=== PATIENT | female | born 1990 | race African-American/Black ===

== ENCOUNTER → 2017-03-06 | Outpatient (CLI) | payer OTHER ==
[~2017-03-06] MED LIST: CEPH250S PO; DIPH0.5S2 IM; PREN29TA PO
== END ==
LOC: HPND 13:46
PROVIDERS: ATTEND Family Medicine
DX: O09.32 Supervision of pregnancy with insufficient antenatal care, second trimester (principal); Z36.3 Encounter for antenatal screening for malformations; Z34.90 Encounter for supervision of normal pregnancy, unspecified, unspecified trimester
CPT/HCPCS: 76805

== ENCOUNTER 2017-03-18 14:33 | Observation (INO) | payer OTHER ==
[2017-03-18] VITALS (9 sets, daily range): BP systolic 93–175; BP diastolic 50–92; PULSE 92–120; RESP 18; TEMP 98.6
[~2017-03-18] VITALS: Ht 172.7 cm; Wt 130.0 kg
[~2017-03-18 14:33] MED LIST changes: -DIPH0.5S2 IM
[2017-03-18] MEDS ORDERED: SODIUM CHLORIDE 0.9% FLUSH 10 ML FLUSH IV FLUSH PRN (15:15)
[2017-03-18] MEDS ORDERED: NIFEdipine 10 MG CAP PO PRN (15:15)
[2017-03-18] MEDS ORDERED: ONDANSETRON HCL 4 MG/2 ML VIAL IV PUSH PRN (15:15)
[2017-03-18] MEDS ORDERED: ACETAMINOPHEN 325 MG TAB PO PRN (15:15)
[2017-03-18] MEDS ORDERED: CALCIUM GLUCONATE 10% 1 GM/10 ML VIAL IV PUSH PRN (15:15)
[2017-03-18 16:49] LABS: HEMATOCRIT 34.3 % (35.0-46.0); HEMOGLOBIN 10.8 GM/DL (11.6-15.3); MEAN CELL VOLUME 65.6 FL (80.0-100.0); MEAN CORPUSCULAR HEMOGLOBIN 20.7 PG (27.0-34.0); MEAN CORPUSCULAR HGB CONC 31.5 % (32.0-36.0); MEAN PLATELET VOLUME 10.1 FL (7.0-11.0); PLATELET COUNT 186 TH/MM3 (150-450); RED BLOOD COUNT 5.22 MIL/MM3 (4.00-5.30); RED CELL DISTRIBUTION WIDTH 16.4 % (11.6-17.2); WHITE BLOOD COUNT 8.9 TH/MM3 (4.0-11.0)
[2017-03-18 17:06] LABS: ALBUMIN 2.7 GM/DL (3.4-5.0); AST (GOT) 10 U/L (15-37); BICARBONATE 20.8 MEQ/L (21.0-32.0); BLOOD UREA NITROGEN 6 MG/DL (7-18); CHLORIDE 107 MEQ/L (98-107); GLOMERULAR FILTRATION RATE 121 ML/MIN (>89); GLUCOSE,RANDOM 69 MG/DL (74-106); SODIUM (NA) 138 MEQ/L (136-145)
[2017-03-18 17:10] LABS: ALKALINE PHOSPHATASE 178 U/L (45-117); ALT (GPT) 20 U/L (10-53); TOTAL BILIRUBIN ADULT 0.2 MG/DL (0.2-1.0); TOTAL PROTEIN 7.7 GM/DL (6.4-8.2)
[2017-03-18] MEDS ORDERED: FAMOTIDINE 20 MG TAB PO PRN (18:00)
[2017-03-18] MEDS: LACTATED RINGER'S 1000 ML INJ 1,000 ML IV SCH (18:04)
[2017-03-18] MEDS ORDERED: SODIUM CHLORIDE 0.9% FLUSH 10 ML FLUSH IV FLUSH SCH (21:00)
[2017-03-18 21:07] LABS: BACTERIA, URINE RARE /hpf; BILIRUBIN, URINE NEG (NEG); BLOOD, URINE NEG (NEG); GLUCOSE,URINE NEG (NEG); KETONE, URINE NEG (NEG); MUCUS URINE FEW /lpf (OCC); NITRITE,URINE NEG (NEG); PH, URINE 7.5 (5.0-8.5); SQUAMOUS EPITHELIAL CELL URINE 9 /hpf (0-5); URINE COLOR YELLOW (YELLW/STRAW); URINE LEUKOCYTE ESTERASE NEG (NEG)
[2017-03-18] MEDS ORDERED: CALCIUM CARBONATE 500 MG CHEWABLE TAB PO PRN (21:45)
[2017-03-19] VITALS (13 sets, daily range): BP systolic 96–126; BP diastolic 38–64; PULSE 76–92; RESP 18–20; TEMP 97.9–98.4
[2017-03-19] MEDS: LACTATED RINGER'S 1000 ML INJ 1,000 ML IV SCH (04:08)
--- NOTE | 2017-03-19 07:04 | HHI.HP ---
History & Physical H&P From ~1600 03/18: HPI Chief Complaint abdominal pain Date Seen: Mar 18, 2017 Travel History International Travel<30 Days: No Contact w/Intl Traveler<30Days: No History of Present Illness HPI Ms. James is a 26 yo at 36 2/7 weeks (patient of Dr. Singleton) who presents at request of Dr. Singleton due to tachycardia (reported HR 180) and abdominal pain not suggestive of ligamentous pain while in clinic today. Patient reports that her abdominal pain has been present since Saturday, 03/16, and has been intermittent in nature. Pain is generally in her lower abdomen as well as on her R side and in her back. patient states that this pain varies in how long it lasts; it sometimes lasts minutes. Pain can occur every few minutes to every few hours. Patient has not noticed any abdominal pain or obvious loss of vaginal fluid. Patient does not report any fevers/chills or abnormal urination or bowel movements. Patient has had shortness of breath for ~1 mo; she sleeps sitting up at night. No chest pain or leg swelling. labs: Pending; nursing staff at [facility] clinic attempting to obtain. 02/2017 labs- Hemoglobin 10.3, antibody screen positive for anti-Miguel antibodies, zoster titer low Patient had elevated BP with prior gestation at delivery; no reported preeclampsia. Weeks Gestation: 36 Para: 1 : 2 History Past Medical History Narrative Medical HTN during last gestation Obstetric History Obstetric History 1st gestation was ~7 years ago; CS for failure to progress at post term dates -Some reported elevated BP with prior gestation; unspecified Past Surgical History Narrative Surgical CS x1 7 years prior Appendectomy ~7 years prior Family History Narrative Family History Maternal HTN Social History Alcohol Use: No Tobacco Use: No Substance Abuse: No Allergies-Medications (Allergen,Severity, Reaction): Coded Allergies: No Known Allergies (Unverified , 03/12/17) Home Meds Active Scripts Vit-Iron Carbonyl ( Plus Iron 29-1 mg) 29 Mg Iron-1 Mg Tab, 1 TAB PO DAILY for Nutritional Supplement, #30 TAB 0 Refills Prov:Richard Singleton MD, R3 03/12/17 Cephalexin Liq (Cephalexin Liq) 250 Mg/5 Ml Susp, 500 MG PO Q6H for Infection, # 280 ML 0 Refills Prov:Richard Singleton MD, R3 02/28/17 Review of Systems General / Constitutional: No: Fever, Weight Gain Eyes: No: Blurred Vision HENT: No: Headaches Cardiovascular: No: Chest Pain or Discomfort Respiratory: No: Short of Breath Gastrointestinal: Abdominal Pain, No: Nausea, Vomiting Genitourinary: No: Urgency, Dysuria Skin: No Rash Neurologic: No: Weakness, Dizziness Psychiatric: No: Anxiety, Depression Physical Exam Initial BP 172/80 HR 91 RR 18 Narrative GENERAL: Well-nourished, well-developed patient. SKIN: Warm and dry. HEAD: Normocephalic and atraumatic. EYES: No scleral icterus. No injection or drainage. ENT: No nasal drainage noted. Mucous membranes pink. Airway patent. NECK: Supple, trachea midline. No JVD. CARDIOVASCULAR: Regular rate and rhythm without murmurs RESPIRATORY: Breath sounds equal bilaterally. No accessory muscle use. ABDOMEN/GI: Abdomen soft, non-tender, bowel sounds present, no rebound, no guarding Gravid EXTREMITIES: No cyanosis or edema. NEUROLOGICAL: Awake and alert. Motor and sensory function grossly within normal limits. GENITOURINARY: External Genitalia: intact and normal in appearance Uterine Contractions: None on CTG Cervix: closed, high, posterior FHT's: Category:1-2 (reactive, generally reassuring, some accelerations to 170's) Baseline: 150 Reactive: Y Variability: Mod Decels: None Data Data Vital Signs Reviewed: Yes Orders Orders Place In Observation (03/18/17 ) Resp Pulse Oximetry (03/18/17 ) Activity Bed Rest (03/18/17 15:10) Intake + Output Q1H (03/18/17 15:10) Notify Parameters (03/18/17 15:10) Heart CONTINUOUS (03/18/17 15:10) ^ Check Deep Tendon Reflexes Q1H (03/18/17 15:10) Diet Npo (03/18/17 Dinner) Lactated Ringer's 1000 Ml Inj (Lr 1000 M (03/18/17 15:10) Sodium Chloride 0.9% Flush (Ns Flush) (03/18/17 15:15) Sodium Chloride 0.9% Flush (Ns Flush) (03/18/17 21:00) Nifedipine (Procardia) (03/18/17 15:15) Calcium Gluconate Inj (Calcium Gluconate (03/18/17 15:15) Acetaminophen (Tylenol) (03/18/17 15:15) Ondansetron Inj (Zofran Inj) (03/18/17 15:15) Cbc No Diff, Includes Plts (03/18/17 15:10) Comprehensive Metabolic Panel (03/18/17 15:10) Uric Acid (03/18/17 15:10) Urinalysis - C+S If Indicated (03/18/17 15:10) Total Protein 24hr Urine (03/18/17 15:10) Creatinine 24 Hr Urine (03/18/17 15:10) Protein Creat Ratio, Random Ur (03/18/17 15:10) Vital Signs (Adult) .ON ADMISSION (03/18/17 15:12) ^ Labor Status (03/18/17 15:12) ^ Non Stress Test (03/18/17 15:12) Us Ob Bpp Wo Nst W Umb Art Dop (03/18/17 15:12) MDM Medical Record Reviewed: Yes Narrative Course / MDM 26 yo at 36 2/7 weeks (patient of Dr. Singleton) with abdominal pain -VS on admission- BP 172/80; subsequently decreased to 128/70 -Cat 1-2 rhythm (reassuring, baseline 150 with some accels to 170's, reactive) -Cervix closed -No contractions on EFM Plan: -Will admit for 23 hr observation -Continue to monitor VS, EFM -Will check CBC, CMP, UA, 24 hr urine protein/Creatinine, uric acid -Will check US to assess status -BPP 10/16 -Will follow HTN in protocol regarding antihypertensive administration if needed Bart Reid MD, R3 Mar 19, 2017 07:03
--- NOTE | 2017-03-19 10:25 | HHI.DCPOC ---
Discharge Care Plan Diagnosis: (1) 36 weeks gestation of (2) Elevated blood pressure reading (3) Abdominal pain Report Symptoms to Your Doctor -Temperature above 100.5 degrees -Redness, of incision or excessive or foul smelling drainage -Unusual pain or calf pain -Increased vaginal bleeding -Painful or difficulty urinating -Feelings of extreme sadness or anxiety after 2 weeks Goals to Promote Your Health * To prevent worsening of your condition and complications * To maintain your health at the optimal level Directions to Meet Your Goals Take your medications as prescribed Follow your dietary instruction Follow activity as directed Ensure plenty of rest for recovery Drink fluids for hydration Keep your appointments as scheduled Take your immunizations and boosters as scheduled If your symptoms worsen call your PCP, if no PCP go to Urgent Care Center or Emergency Room Smoking is Dangerous to Your Health. Avoid second hand smoke Call the 24-hour crisis hotline for domestic abuse at Rachael Hudson MD R1 Mar 19, 2017 10:25
--- NOTE | 2017-03-19 11:16 | PD.OB.ANTE ---
Subjective Diagnosis: (1) Diagnosis: Principal (2) Abdominal pain Diagnosis: Principal (3) Elevated blood pressure reading Diagnosis: Principal (4) 36 weeks gestation of Diagnosis: Principal Interval History Ms. James was afebrile with stable VS overnight (maximum BP 119/57). No concerns for distress or contractions on intermittent monitoring overnight. Patient reports that she has been feeling better this morning. Patient does not report significant abdominal pain. Patient has normal appetite. No vaginal bleeding or loss of vaginal fluid. Patient reports normal urination. Patient feels safe for discharge home; she plans to follow-up with Dr. Singleton (03/21/2016). (Bart Reid MD, R3) Remarks On repeat interview with Dr. Mckeon and Dr. Hudson, patient reported increased shortness of breath for the past 2-3 weeks with laying flat; this is alleviated with sitting up at night. Patient also thinks that walking helps her shortness of breath. Patient also reports some anxiety regarding her infant's safety but feels that she has stable support at home with her sisters. (Bart Reid MD, R3) Objective Vital Signs Vital Signs Date Time Temp Pulse Resp B/P (MAP) Pulse Ox O2 Delivery O2 Flow Rate FiO2 03/19/17 08:45 97.9 20 03/19/17 08:01 88 120/64 (82) 03/19/17 07:01 87 122/62 (82) 03/19/17 06:01 86 112/60 (77) 03/19/17 05:01 76 96/38 (57) 03/19/17 04:04 89 119/57 (77) 03/19/17 04:00 98.1 18 03/19/17 03:01 86 125/63 (83) 03/19/17 02:01 88 107/43 (64) 03/19/17 01:08 85 122/53 (76) 03/19/17 00:28 98.4 03/19/17 00:26 18 03/19/17 00:00 92 125/62 (83) 03/18/17 23:01 98 122/62 (82) 03/18/17 22:02 92 111/86 (94) 03/18/17 21:00 92 123/65 (84) 03/18/17 20:39 98.6 03/18/17 20:38 94 18 122/60 (80) 03/18/17 17:52 18 03/18/17 17:39 97 93/50 (64) 03/18/17 15:16 101 128/70 (89) 03/18/17 15:02 120 175/92 (119) Lab & Micro Results Test 03/18/17 15:08 03/18/17 18:22 White Blood Count 8.9 TH/MM3 Red Blood Count 5.22 MIL/MM3 Hemoglobin 10.8 GM/DL Hematocrit 34.3 % Mean Corpuscular Volume 65.6 FL Mean Corpuscular Hemoglobin 20.7 PG Mean Corpuscular Hemoglobin Concent 31.5 % Red Cell Distribution Width 16.4 % Platelet Count 186 TH/MM3 Mean Platelet Volume 10.1 FL Blood Urea Nitrogen 6 MG/DL Creatinine 0.70 MG/DL Random Glucose 69 MG/DL Total Protein 7.7 GM/DL Albumin 2.7 GM/DL Calcium Level 9.0 MG/DL Uric Acid 3.9 MG/DL Alkaline Phosphatase 178 U/L Aspartate Amino Transf (AST/SGOT) 10 U/L Alanine Aminotransferase (ALT/SGPT) 20 U/L Total Bilirubin 0.2 MG/DL Sodium Level 138 MEQ/L Potassium Level 4.1 MEQ/L Chloride Level 107 MEQ/L Carbon Dioxide Level 20.8 MEQ/L Anion Gap 10 MEQ/L Estimat Glomerular Filtration Rate 121 ML/MIN Urine Color YELLOW Urine Turbidity HAZY Urine pH 7.5 Urine Specific [place] 1.013 Urine Protein NEG mg/dL Urine Glucose (UA) NEG mg/dL Urine Ketones NEG mg/dL Urine Occult Blood NEG Urine Nitrite NEG Urine Bilirubin NEG Urine Urobilinogen LESS THAN 2.0 MG/DL Urine Leukocyte Esterase NEG Urine RBC 1 /hpf Urine WBC 3 /hpf Urine Squamous Epithelial Cells 9 /hpf Urine Bacteria RARE /hpf Urine Mucus FEW /lpf Microscopic Urinalysis Comment CULT NOT INDICATED Urine Random Creatinine 119 MG/DL Urine Random Total Protein 17 MG/DL Urine Protein/Creatinine Ratio 0.14 Physical Exam GENERAL: Well-nourished, well-developed patient. SKIN: Warm and dry. EYES: No scleral icterus. No injection or drainage. ENT: No nasal drainage noted. Mucous membranes pink. Airway patent. CARDIOVASCULAR: Regular rate and rhythm without murmurs RESPIRATORY: CTAB, normal rate ABDOMEN/GI: Abdomen soft, non-tender, bowel sounds present Gravid EXTREMITIES: No cyanosis or edema. NEUROLOGICAL: Awake and alert. Motor and sensory function grossly within normal limits. FHT's: (on intermittent monitoring q4 hrs overnight) Category:1 Baseline: 130's-140's Reactive: Y Variability: Mod Decels: None Cervix closed 03/18 on exam No contractions on CTG (Bart Reid MD, R3) Assessment and Plan Problem List: (1) 36 weeks gestation of ICD Codes: Z3A.36 - 36 weeks gestation of (2) ICD Codes: Z34.90 - Encounter for supervision of normal , unspecified , unspecified trimester Qualifiers: Qualified Codes: Z3A.36 - 36 weeks gestation of (3) Elevated blood pressure reading ICD Codes: R03.0 - Elevated blood-pressure reading, without diagnosis of hypertension Assessment and Plan 26 yo at 36 3/7 weeks (patient of Dr. Singleton) who was admitted for elevated BP reading at OB ED and abdominal pain -Limited care - labs: - Antibody screen positive for anti- Miguel antibodies. Varicella Zoster low, Hgb/Hct 10.3/33.2 -Remainder of panel has been difficult to obtain; after repeat attempt to obtain labs from [facility] 03/19, we elected to repeat panel today so that results could be obtained for follow-up with Dr. Singleton Elevated BP/History of elevated BP Impression: VS on admission- BP 172/80; subsequently decreased to 128/70. Patient also has history of elevated blood pressure with prior gestation at delivery. Patient has had Cat 1 rhythm (reassuring, baseline 130's-140's, reactive) since admission. BPP 8/8 CBC reassuring- PLT count 186 CMP reassuring- LFT's- AST 10, ALT 20, [id number], BILI 0.2. UA reassuring- Protein/Cr ratio 0.14 -Due to history of elevated BP and limited care in association of patient risk factor of obesity, ill plan for close surveillance of fetus during -Patient advised regarding kick counting -Will plan for weekly follow-up with Dr. Singleton -Will plan for weekly TUSHAR and NST testing Seen and discussed with Dr. Mckeon (Bart Reid MD, R3) Assessment and Plan Patient seen and examined. Case reviewed and discussed with the resident team. Agree with plan of care as discussed with me and documented in the resident note. Jessica Mckeon MD (Jessica Mckeon MD) Bart Reid MD, R3 Mar 19, 2017 11:16 Jessica Mckeon MD Mar 19, 2017 17:35
[2017-03-19 12:30] LABS: AUTOMATED NEUTROPHIL # 5.2 TH/MM3 (1.8-7.7); BASOPHIL % 0.3 % (0.0-2.0); EOSINOPHIL # 0.1 TH/MM3 (0-0.4); EOSINOPHIL % 1.3 % (0.0-4.0); HEMOGLOBIN 9.6 GM/DL (11.6-15.3); LYMPH % 18.6 % (9.0-44.0); LYMPHOCYTE # 1.3 TH/MM3 (1.0-4.8); MEAN CELL VOLUME 65.3 FL (80.0-100.0); MEAN CORPUSCULAR HEMOGLOBIN 20.9 PG (27.0-34.0); MEAN PLATELET VOLUME 11.2 FL (7.0-11.0); MONO % 7.1 % (0.0-8.0); MONOCYTE # 0.5 TH/MM3 (0-0.9); NEUT % 72.7 % (16.0-70.0); PLATELET COUNT 168 TH/MM3 (150-450); RED BLOOD COUNT 4.59 MIL/MM3 (4.00-5.30); RED CELL DISTRIBUTION WIDTH 16.3 % (11.6-17.2); WHITE BLOOD COUNT 7.2 TH/MM3 (4.0-11.0)
[2017-03-19 13:58] LABS: HEPATITIS A AB IGM NEGATIVE (NEGATIVE); HEPATITIS B CORE AB IGM NEGATIVE (NEGATIVE); HEPATITIS B SURFACE ANTIGEN NEGATIVE (NEGATIVE)
[2017-03-19 14:59] LABS: HEPATITIS C AB IgG NEGATIVE (NEGATIVE)
== END 2017-03-19 12:37 | disposition home or self-care (01) ==
LOC: HOBED 14:33 → H2EA 16:32
PROVIDERS: ADMIT Obstetrics & Gynecology Maternal & Fetal Medicine; ATTEND Obstetrics & Gynecology Maternal & Fetal Medicine
DX: O26.893 Other specified pregnancy related conditions, third trimester (principal); Z3A.36 36 weeks gestation of pregnancy; R06.02 Shortness of breath; R10.9 Unspecified abdominal pain; O16.3 Unspecified maternal hypertension, third trimester; F41.9 Anxiety disorder, unspecified
CPT/HCPCS: 59025; 76819; 76820; 80053; 80074; 81001; 82570; 84156; 84550; 85025; 85027; 86077; 86592; 86703; 86762; 86850; 86870; 86900; 86901; 86902; 99285; G0378; J7120

== ENCOUNTER 2017-03-30 20:04 | Emergency (ER) | payer OTHER ==
[~2017-03-30] VITALS: Ht 172.7 cm; Wt 127.0 kg
[~2017-03-30 20:04] MED LIST changes: -CEPH250S PO
--- NOTE | 2017-03-30 21:26 | PD ---
HPI Chief Complaint Nausea and Vomiting (Jose Salter MD R1) Travel History International Travel<30 Days: No Contact w/Intl Traveler<30Days: No Known Affected Area: No (Jose Salter MD R1) History of Present Illness HPI Patient's a 26-year-old presenting today for nausea and vomiting. Patient states that she had nausea and vomiting began yesterday, she's not been able to keep down fluids or solids since then. She has vomited today after attempting to eat, drink. Notes some lower back pain, reports that this back pain has been present for a significant duration of the . No fever, chills, cough, runny nose, recent sick contacts, chest pain, shortness of breath. Denies change in urine frequency, color, smell, burning during urination. No change in bowel habits. She reports that the baby feels normal, no discharge from below, no spotting, no incontinence. Reports she is to have a repeat 04/08/17. Weeks Gestation: 38 Para: 1 : 2 (Jose Salter MD R1) History Past Medical History Narrative Medical Obesity (Jose Salter MD R1) Obstetric History Obstetric History 26 ; care in [place] Previous (Jose Salter MD R1) Past Surgical History Narrative Surgical Appendectomy (Jose Salter MD R1) Family History Family History: Negative (Jose Salter MD R1) Social History Narrative Social History No tobacco, no alcohol. Works as a sales department supervisor. From [place]. (Jose Salter MD R1) Allergies-Medications (Allergen,Severity, Reaction): Coded Allergies: No Known Allergies (Unverified , 03/30/17) Home Meds Active Scripts Aluminum-Magnesium Hydroxide Liq (Mag-Al Liq) 200-200 Mg/5 Ml Liqd, 20 ML PO TID Y for HEARTBURN, #1 BOTTLE Prov:Jayson Ricketts MD 03/30/17 Ondansetron Odt (Ondansetron Odt) 4 Mg Tab, 4 MG SL Q8HR Y for Nausea/Vomiting, #30 TAB 0 Refills Prov:Jayson Ricketts MD 03/30/17 Vit-Iron Carbonyl ( Plus Iron 29-1 mg) 29 Mg Iron-1 Mg Tab, 1 TAB PO DAILY for Nutritional Supplement, #30 TAB 0 Refills Prov:Richard Singleton MD, R3 03/12/17 Review of Systems General / Constitutional: No: Fever, Chills Eyes: No: Diploplia, Blurred Vision HENT: Headaches (Mild since yesterday), No: Vertigo Cardiovascular: No: Chest Pain or Discomfort, Palpitations, Syncope Respiratory: No: Cough, Short of Breath, Wheezing Gastrointestinal: Nausea, Vomiting, No: Diarrhea, Abdominal Pain, Constipation , Changes in Bowel Habits, Loss of Appetite (Vomits after attempting to eat) Genitourinary: No: Urgency, Frequency, Dysuria, Nocturia, Hematuria, Incontinence, Discharge, Vaginal Bleeding Musculoskeletal: No: Weakness Skin: No Rash, No Itching Neurologic: No: Weakness, Dizziness Psychiatric: No: Anxiety, Depression Endocrine: No: Heat Intolerance, Cold Intolerance (Jose Salter MD R1) Physical Exam Narrative GENERAL: Well-nourished, well-developed patient. SKIN: Warm and dry. HEAD: Normocephalic and atraumatic. EYES: No scleral icterus. No injection or drainage. ENT: No nasal drainage noted. Mucous membranes pink. Airway patent. NECK: Supple, trachea midline. No JVD. CARDIOVASCULAR: Regular rate and rhythm without murmurs, gallops, or rubs. RESPIRATORY: Breath sounds equal bilaterally. No accessory muscle use. ABDOMEN/GI: Abdomen soft, non-tender, bowel sounds present, no rebound, no guarding Gravid to 38 weeks size : Dilation: 0-1 Effacement: 20 Station: -3 Membranes: intact Position: posterior FHT's: Category: 1 Baseline: 145 Reactive: y Variability: moderate Decels: none EXTREMITIES: No cyanosis or edema. BACK: Nontender without obvious deformity. No CVA tenderness. NEUROLOGICAL: Awake and alert. Motor and sensory grossly within normal limits. Five out of 5 muscle strength in all muscle groups. Normal speech. (Jose Salter MD R1) Data Data Vital Signs Reviewed: Yes Group B Strep: Positive (Jose Salter MD R1) [facility] Medical Record Reviewed: Yes Plan 26-year-old at 38 weeks presented for nausea and vomiting for 1 day. Unable to tolerate fluids or solids over that time period. No other signs of infection at this time, no sick contacts. No changes in urinary habits. No significant acute changes in status, signs of imminent labor or rupture of membranes. BMP without significant metabolic derangement, UA without signs of active infection. -1000 ml IV bolus -IV Zofran 4mg -Malox -Likely discharge pending symptom changes (Jose Salter MD R1) Diagnosis Diagnosis: Primary Impression: Vomiting of , after 22 weeks Additional Impression: 38 weeks gestation of Disposition: 01 DISCHARGE HOME Condition: Stable Scripts Aluminum-Magnesium Hydroxide Liq (Mag-Al Liq) 200-200 Mg/5 Ml Liqd 20 ML PO TID Y for HEARTBURN, #1 BOTTLE Prov: Jayson Ricketts MD 03/30/17 Ondansetron Odt (Ondansetron Odt) 4 Mg Tab 4 MG SL Q8HR Y for Nausea/Vomiting, #30 TAB 0 Refills Prov: Jayson Ricketts MD 03/30/17 Patient Instructions: Labor (ED), Nausea and Vomiting in (ED) Jose Salter MD R1 Mar 30, 2017 21:26 Jayson Ricketts MD Mar 30, 2017 22:49
[2017-03-30] MEDS ORDERED: ONDANSETRON HCL 4 MG/2 ML VIAL IV PUSH ONE (21:30)
[2017-03-30] MEDS ORDERED: SODIUM CHLOR 0.9% 1000 ML INJ 1,000 ML IV ONE (21:30)
[2017-03-30 21:45] LABS: BACTERIA, URINE MOD /hpf; BILIRUBIN, URINE NEG (NEG); BLOOD, URINE NEG (NEG); GLUCOSE,URINE NEG (NEG); KETONE, URINE NEG (NEG); MUCUS URINE FEW /lpf (OCC); NITRITE,URINE NEG (NEG); SQUAMOUS EPITHELIAL CELL URINE 16 /hpf (0-5); URINE COLOR YELLOW (YELLW/STRAW); URINE LEUKOCYTE ESTERASE NEG (NEG)
[2017-03-30 21:59] LABS: BICARBONATE 22.7 MEQ/L (21.0-32.0); CALCIUM 9.1 MG/DL (8.5-10.1); CREATININE 0.59 MG/DL (0.50-1.00)
[2017-03-30] MEDS ORDERED: ONDA4TAB7 SL (22:49)
[2017-03-30] MEDS ORDERED: SUCR1TAB PO (22:49)
[2017-03-30] MEDS ORDERED: ALUM5LIQ PO (22:59)
[2017-03-30] MEDS ORDERED: ALUMINUM/MAGNESIUM/SIMETH 30 ML CUP PO ONE (23:00)
[2017-03-30] MEDS ORDERED: ACETAMINOPHEN 325 MG TAB PO ONE (23:30)
== END 2017-03-30 23:29 | disposition home or self-care (01) ==
LOC: HOBED 20:04
DX: O21.2 Late vomiting of pregnancy (principal); Z3A.38 38 weeks gestation of pregnancy; B96.1 Klebsiella pneumoniae [K. pneumoniae] as the cause of diseases classified elsewhere; M54.5 Low back pain
CPT/HCPCS: 59025; 80048; 81001; 87077; 87086; 87186; 96374; 99284; J2405

== ENCOUNTER 2017-04-08 08:50 | Inpatient (IN) | payer MEDICAID, OTHER ==
[2017-04-08] VITALS (14 sets, daily range): BP systolic 107–155; BP diastolic 55–70; PULSE 68–100; RESP 14–20; TEMP 97.9–99.1; O2SAT 99
[~2017-04-08 08:50] MED LIST changes: +ALUM5LIQ PO; +ONDA4TAB7 SL
[2017-04-08] MEDS ORDERED: LACTATED RINGER'S 1000 ML INJ 1,000 ML IV ONE (09:04)
--- NOTE | 2017-04-08 09:21 | HHI.HP ---
History & Physical H&P [facility] Consult (Detail) Patient Name: Shari James Unit Number: [id number] Date of : 1990 Patient Status: Registered Clinic Attending Doctor: Tato Stringer II, MD HPI HPI Chief Complaint Previous for repeat Date Seen: Mar 21, 2017 Time Seen: 13:55 Travel History International Travel<30 Days: No Contact w/Intl Traveler<30Days: No Known Affected Area: No History of Present Illness HPI Patient is 26-year-old black female the 39 weeks who presents for repeat at 39 weeks. Patient's family practice clinic and a patient of Dr. Singleton for care. She transferred her care from [place].to [place] toward the end the . Patient was also admitted here recently for mild hypertension and abdominal pain. Her workup and 24-hour urine were negative. Patient had abdominal pain and back pain steadily throughout the last half Weeks Gestation: 39 Para: 1 : 2 History (Limited) History Obstetric History Obstetric History 1 Past Surgical History Narrative Surgical 1 Social History Alcohol Use: No Tobacco Use: No Substance Abuse: No Allergies-Medications Allergies-Medications (Allergen,Severity, Reaction): Coded Allergies: No Known Allergies (Unverified , 03/12/17) Home Meds Active Scripts Vit-Iron Carbonyl ( Plus Iron 29-1 mg) 29 Mg Iron-1 Mg Tab, 1 TAB PO DAILY for Nutritional Supplement, #30 TAB 0 Refills Prov:Richard Singleton MD, R3 03/12/17 Discontinued Scripts Cephalexin Liq (Cephalexin Liq) 250 Mg/5 Ml Susp, 500 MG PO Q6H for Infection, # 280 ML 0 Refills Prov:Richard Singleton MD, R3 02/28/17 ROS Review of Systems General / Constitutional: No: Fever, Weight Gain, Chills, Other Eyes: No: Diploplia, Blurred Vision, Visual changes, Pain, Photophobia HENT: No: Headaches, Vertigo, Lightheadedness Cardiovascular: No: Irregular Rhythm, Chest Pain or Discomfort, Palpitations, Tachycardia, Syncope, Varicosities, Edema, Cyanosis Respiratory: No: Cough, Short of Breath, Other Gastrointestinal: Abdominal Pain, No: Nausea, Vomiting, Diarrhea Genitourinary: No: Decreased Urinary Output, Oliguria Musculoskeletal: No: Limited ROM, Weakness, Cramping, Edema, Pain Skin: No Rash, No Itching, No Dryness, No Lumps, No Change in Pigmentation, No Change in Nails, No Alopecia, No Lesions Neurologic: No: Weakness, Dizziness, Syncope, Focal Abnormalities, Coordination Problem, Headache, Slurred Speech, Seizures Psychiatric: No: Depression, Suicidal Ideations, Homicidal Ideation Endocrine: No: Heat Intolerance, Cold Intolerance, Polydipsia, Polyuria, Other Physical Exam Physical Exam Narrative GENERAL: Well-nourished, well-developed obese patient. SKIN: Warm and dry. HEAD: Normocephalic and atraumatic. EYES: No scleral icterus. No injection or drainage. ENT: No nasal drainage noted. Mucous membranes pink. Airway patent. NECK: Supple, trachea midline. No JVD. CARDIOVASCULAR: Regular rate and rhythm without murmurs, gallops, or rubs. RESPIRATORY: Breath sounds equal bilaterally. No accessory muscle use. BREASTS: Bilateral exam showed no masses , no retractions, no nipple discharge. ABDOMEN/GI: Abdomen soft, non-tender, bowel sounds present, no rebound, no guarding Gravid to [39-] weeks size Fundal Height: [39-] GENITOURINARY: External Genitalia: intact and normal in appearance BUS glands: [-] Cervix: [-post] Dilatation: [-closed] Effacement: [-thick] Station: [-3] Presentation: [vtx-] Membranes: [intact ] Uterine Contractions: [none-] FHT's: Category: [1-] Baseline: [-133] Reactive: [R-] Variability: [-mod] Decels: [-none] EXTREMITIES: No cyanosis or edema. BACK: Nontender without obvious deformity. No CVA tenderness. NEUROLOGICAL: Awake and alert. Motor and sensory grossly within normal limits. Five out of 5 muscle strength in all muscle groups. Normal speech. Data Data [facility] Interpretation(s) Patient 26-year-old black female previous for repeat at term and will be 39 weeks and 2 days at time for Plan Plan schedule for 04/08/17 pain at 10:30 in the morning Diagnosis: previous for repeat Disposition: ADMIT Condition: Stable Tato Stringer II, MD Apr 08, 2017 0900 Tato Stringer II, MD Apr 08, 2017 09:21
[2017-04-08] MEDS ORDERED: LACTATED RINGER'S 1000 ML INJ 1,000 ML IV SCH (09:34)
[2017-04-08] MEDS ORDERED: OXYTOCIN 30 UNITS-500ML PREMIX 500 ML ONE ×2 (10:01→13:30)
[2017-04-08] MEDS ORDERED: LIDOCAINE HCL 1% 20 ML VIAL ONE (10:03)
[2017-04-08] MEDS ORDERED: OXYTOCIN 10 UNIT/ML AMP ONE (10:04)
[2017-04-08 10:07] LABS: AUTOMATED NEUTROPHIL # 5.6 TH/MM3 (1.8-7.7); BASOPHIL % 0.5 % (0.0-2.0); EOSINOPHIL # 0.1 TH/MM3 (0-0.4); EOSINOPHIL % 0.6 % (0.0-4.0); HEMOGLOBIN 10.5 GM/DL (11.6-15.3); LYMPH % 22.7 % (9.0-44.0); LYMPHOCYTE # 1.9 TH/MM3 (1.0-4.8); MEAN CELL VOLUME 64.7 FL (80.0-100.0); MEAN CORPUSCULAR HEMOGLOBIN 20.6 PG (27.0-34.0); MEAN CORPUSCULAR HGB CONC 31.8 % (32.0-36.0); MEAN PLATELET VOLUME 11.1 FL (7.0-11.0); MONOCYTE # 0.7 TH/MM3 (0-0.9); NEUT % 67.2 % (16.0-70.0); PLATELET COUNT 209 TH/MM3 (150-450); WHITE BLOOD COUNT 8.3 TH/MM3 (4.0-11.0)
[2017-04-08 10:11] LABS: BACTERIA, URINE MOD /hpf; BILIRUBIN, URINE NEG (NEG); BLOOD, URINE NEG (NEG); GLUCOSE,URINE NEG (NEG); HYALINE CAST, URINE 3 /lpf (RARE); KETONE, URINE NEG (NEG); MUCUS URINE FEW /lpf (OCC); NITRITE,URINE NEG (NEG); PH, URINE 8.5 (5.0-8.5); SQUAMOUS EPITHELIAL CELL URINE 85 /hpf (0-5); URINE COLOR YELLOW (YELLW/STRAW); URINE LEUKOCYTE ESTERASE TRACE (NEG)
[2017-04-08] MEDS ORDERED: ceFAZolin 2 GM PREMIX 50 ML IV SCH (10:15)
[2017-04-08] MEDS ORDERED: MORPHINE SULFATE PF 5 MG/10 ML VIAL ONE (10:29)
[2017-04-08] MEDS ORDERED: diphenhydrAMINE HCL 50 MG/ML VIAL ONE (10:30)
[2017-04-08] MEDS ORDERED: EPIDURAL-DIPHENHYDRAMINE HCL 50 MG/ML VIAL IV PUSH PRN (10:45)
[2017-04-08] MEDS ORDERED: EPIDURAL-NO SYSTEMIC NARCOTICS PRN (10:45)
[2017-04-08] MEDS ORDERED: EPIDURAL-DO NOT ADMINISTER ANTICOAGULANTS PRN (10:45)
[2017-04-08] MEDS ORDERED: EPIDURAL-NALOXONE HCL 0.4 MG/ML AMP IV PUSH PRN (10:45)
[2017-04-08] MEDS ORDERED: CITRIC ACID-SODIUM CITRATE LIQ 30 ML UDC PO SCH (10:45)
[2017-04-08] MEDS: LACTATED RINGER'S 1000 ML INJ 1,000 ML IV SCH ×2 (11:00→20:19)
[2017-04-08] MEDS ORDERED: KETOROLAC TROMETHAMINE 30 MG/ML (IVP) VIAL IV PUSH ONE (12:00)
[2017-04-08] MEDS ORDERED: PHENYLEPH/NS 1000 MCG/10 ML SYR IV ONE (12:00)
[2017-04-08] MEDS ORDERED: LIDOCAINE HCL 1% PF 5 ML SYRINGE OTHER ONE (12:00)
[2017-04-08] MEDS ORDERED: DEXAMETHASONE SOD PHOS 4 MG/ML VIAL IV ONE (12:00)
[2017-04-08] MEDS ORDERED: PROPOFOL 200 MG/20 ML AMP IV ONE (12:00)
[2017-04-08] MEDS ORDERED: ONDANSETRON HCL 4 MG/2 ML VIAL IV ONE (12:00)
[2017-04-08] MEDS ORDERED: LACTATED RINGER'S 1000 ML INJ 3,000 ML IV ONE (12:00)
[2017-04-08] MEDS ORDERED: OXYTOCIN 10 UNIT/ML AMP IV ONE (12:00)
[2017-04-08] MEDS ORDERED: ACETAMINOPHEN 325 MG TAB PO PRN (12:30)
[2017-04-08] MEDS ORDERED: ONDANSETRON HCL 4 MG/2 ML VIAL IV PUSH PRN (12:30)
[2017-04-08] MEDS ORDERED: SODIUM CHLORIDE 0.9% FLUSH 10 ML FLUSH IV FLUSH PRN (12:30)
[2017-04-08] MEDS ORDERED: OXYTOCIN 30 UNITS-500ML PREMIX 500 ML IV ONE (12:30)
[2017-04-08] MEDS ORDERED: EPIDURAL-DIPHENHYDRAMINE HCL 50 MG CAP PO PRN (14:00)
[2017-04-08] MEDS ORDERED: CLINDAMYCIN 600 MG/NS PREMIX 50 ML IV SCH (16:00)
[2017-04-08] MEDS ORDERED: ZOLPIDEM TARTRATE 5 MG TAB PO PRN (21:00)
[2017-04-08] MEDS ORDERED: OXYTOCIN 30 UNITS-500ML PREMIX 500 ML IV PRN (22:30)
[2017-04-09] VITALS: BP 116/60; PULSE 109; TEMP 98; O2SAT 97
[2017-04-09] MEDS: IBUPROFEN 600 MG TAB PO PRN ×4 (01:59→20:48)
[2017-04-09] MEDS: oxyCODONE/ACETAMINOPHEN 5 MG/325 MG TAB PO PRN ×4 (02:00→20:48)
[2017-04-09 04:00] VITALS: BP 105/62; PULSE 102; RESP 18; TEMP 98; O2SAT 95
[2017-04-09 05:51] LABS: AUTOMATED NEUTROPHIL # 8.3 TH/MM3 (1.8-7.7); BASOPHIL % 0.2 % (0.0-2.0); EOSINOPHIL # 0.1 TH/MM3 (0-0.4); EOSINOPHIL % 0.5 % (0.0-4.0); HEMATOCRIT 24.9 % (35.0-46.0); HEMOGLOBIN 7.9 GM/DL (11.6-15.3); LYMPH % 16.7 % (9.0-44.0); LYMPHOCYTE # 1.9 TH/MM3 (1.0-4.8); MEAN CELL VOLUME 65.5 FL (80.0-100.0); MEAN CORPUSCULAR HEMOGLOBIN 20.8 PG (27.0-34.0); MEAN CORPUSCULAR HGB CONC 31.8 % (32.0-36.0); MEAN PLATELET VOLUME 10.5 FL (7.0-11.0); MONO % 11.4 % (0.0-8.0); MONOCYTE # 1.3 TH/MM3 (0-0.9); NEUT % 71.2 % (16.0-70.0); PLATELET COUNT 159 TH/MM3 (150-450); RED BLOOD COUNT 3.81 MIL/MM3 (4.00-5.30); RED CELL DISTRIBUTION WIDTH 16.9 % (11.6-17.2); WHITE BLOOD COUNT 11.6 TH/MM3 (4.0-11.0)
[2017-04-09 06:10] VITALS: RESP 18
[2017-04-09 06:40] VITALS: RESP 18
[2017-04-09 08:00] VITALS: BP 100/60; PULSE 96; RESP 16; TEMP 98.2; O2SAT 99
[2017-04-09] MEDS: DOCUSATE SODIUM 50 MG/SENNA 8.6 MG TAB PO PRN ×2 (08:16→20:47)
[2017-04-09] MEDS ORDERED: PNEUMOCOCCAL POLYVALENT INJ 25 MCG/0.5 ML SYR IM ONE (10:00)
--- NOTE | 2017-04-09 11:35 | HHI.OB ---
Subjective Post Operative Day: 1 Remarks Mom is doing well on POD #1; she is ambulating and voiding without difficulty. Her pain is controlled with motrin and percocet. She is breast feeding. Her vaginal bleeding is wnl. She denies fever, chills, n/v/d, sob, cp. Objective Vitals/I&O Vital Signs Date Time Temp Pulse Resp B/P (MAP) Pulse Ox O2 Delivery O2 Flow Rate FiO2 04/09/17 08:00 98.2 96 16 100/60 (73) 99 04/09/17 06:40 18 04/09/17 06:10 18 04/09/17 04:00 98.0 102 18 105/62 (76) 95 04/09/17 00:00 116/60 (78) 04/09/17 00:00 98.0 109 97 04/08/17 23:45 16 04/08/17 23:45 20 04/08/17 22:00 14 04/08/17 21:00 16 04/08/17 20:00 97.9 100 18 116/59 (78) 99 04/08/17 17:40 98.4 85 17 107/57 (74) 04/08/17 14:05 98.3 04/08/17 14:05 71 17 115/66 (82) 99 04/08/17 13:50 98.6 80 18 155/66 (95) 04/08/17 13:35 99.1 04/08/17 13:14 68 116/55 (75) 04/08/17 13:14 17 04/08/17 13:00 83 17 119/58 (78) 04/08/17 12:50 85 110/60 (77) 04/08/17 12:50 18 04/08/17 12:35 98.1 83 17 110/58 (75) Result Diagram: 04/09/17 0510 Objective Remarks GENERAL: Well-nourished, well-developed patient. CARDIOVASCULAR: Regular rate and rhythm without murmurs, gallops, or rubs. RESPIRATORY: Breath sounds equal bilaterally. No accessory muscle use. ABDOMEN/GI: Abdomen soft, non-tender, bowel sounds present. Incision: Clean, dry and intact. Fundus: Firm, non-tender at umbilicus. GENITOURINARY: Light to moderate bleeding. EXTREMITIES: No cyanosis or edema, non-tender, without signs of DVT. Medications and IVs Current Medications Medications (Trade) Dose Ordered Sig/Ember Route Start Time Stop Time Status Last Admin Lactated Ringer's 1,000 ml @ 100 mls/hr Q10H IV 04/08/17 17:28 04/09/17 13:27 04/08/17 20:19 Oxytocin 500 ml @ 100 mls/hr UNSCH X1 PRN IV 04/08/17 22:30 04/09/17 22:29 (NS Flush) 2 ml BID IV FLUSH 04/08/17 21:00 (NS Flush) 2 ml UNSCH PRN IV FLUSH 04/08/17 12:30 (Mylicon Chew) 80 mg QID PRN PO 04/08/17 12:30 (Tylenol) 650 mg Q6H PRN PO 04/08/17 12:30 (Motrin) 600 mg Q6H PRN PO 04/08/17 12:30 04/09/17 08:15 (Percocet 5-325 Mg) 1 tab Q4H PRN PO 04/08/17 12:30 04/09/17 08:16 (Percocet 5-325 Mg) 2 tab Q4H PRN PO 04/08/17 12:30 04/09/17 02:00 (Britt-Colace) 2 tab Q12H PRN PO 04/08/17 12:30 04/09/17 08:16 (Ambien) 5 mg HS PRN PO 04/08/17 21:00 (M-M-R Ii Inj) 0.5 ml ONCE ONCE SQ 04/09/17 16:00 04/09/17 16:01 (Boostrix Inj) 0.5 ml ONCE ONCE IM 04/09/17 16:00 04/09/17 16:01 (Zofran Inj) 4 mg Q6H PRN IV PUSH 04/08/17 12:30 (Benadryl) 50 mg Q6H PRN PO 04/08/17 14:00 04/09/17 13:59 Assessment/Plan Assessment and Plan 26y/o female who is POD# 1 s/p CXN. -Continue routine care. -Percocet and Motrin PRN pain. -Encouraged OOB. Advised pelvic rest for 6 wks. Will need a f/u appt. in 1 wk for incision check. -Post op H/H 7.9/24.9 -Re: ctrl, she is considering nexplanon vs oral contraception - Likely d/c in 1-2 days dw OB attending and Dr. Ricketts Discharge Planning Likely in 1-2 days Richard Singleton MD, R3 Apr 09, 2017 11:35
[2017-04-09] MEDS: SIMETHICONE 80 MG CHEWABLE TAB PO PRN ×2 (15:02→20:47)
[2017-04-09] MEDS ORDERED: DIPHTH/TETANUS/ACEL PERTUSSIS (BOOSTER) 0.5 ML VIAL/PFS IM ONE (16:00)
[2017-04-09] MEDS ORDERED: MEASLES, MUMPS, RUBELLA VACCINE 0.5 ML VIAL SQ ONE (16:00)
[2017-04-09] MEDS: SODIUM CHLORIDE 0.9% FLUSH 10 ML FLUSH IV FLUSH SCH (19:52)
[2017-04-09 20:30] VITALS: BP 113/66; PULSE 95; RESP 18; TEMP 98.8; O2SAT 100
[2017-04-10] MEDS: IBUPROFEN 600 MG TAB PO PRN ×4 (03:29→23:51)
[2017-04-10] MEDS: SIMETHICONE 80 MG CHEWABLE TAB PO PRN (03:30)
[2017-04-10] MEDS: oxyCODONE/ACETAMINOPHEN 5 MG/325 MG TAB PO PRN ×4 (03:30→23:51)
[2017-04-10 08:00] VITALS: BP 102/63; PULSE 86; RESP 18; TEMP 98.4
[2017-04-10] MEDS: SODIUM CHLORIDE 0.9% FLUSH 10 ML FLUSH IV FLUSH SCH ×2 (09:00→19:12)
[2017-04-10] MEDS: DOCUSATE SODIUM 50 MG/SENNA 8.6 MG TAB PO PRN ×2 (09:38→23:50)
--- NOTE | 2017-04-10 13:38 | HHI.OB ---
Subjective Post Operative Day: 2 Remarks Patient is doing well today. She continues to have some abdominal discomfort, which is improved with motrin and percocet. She is attempting to breast feed, but baby is taking to formula better. She is going to talk with the nurse regarding pumping breast milk. She denies fever/chills. She is ambulating and voiding without difficulty. She is passing gas, but no BM. Objective Vitals/I&O Vital Signs Date Time Temp Pulse Resp B/P (MAP) Pulse Ox O2 Delivery O2 Flow Rate FiO2 04/10/17 08:00 86 102/63 (76) 04/10/17 08:00 98.4 18 04/09/17 20:30 98.8 95 18 100 04/09/17 20:30 113/66 (82) Result Diagram: 04/09/17 0510 Objective Remarks GENERAL: Well-nourished, well-developed patient. CARDIOVASCULAR: Regular rate and rhythm without murmurs, gallops, or rubs. RESPIRATORY: Breath sounds equal bilaterally. No accessory muscle use. ABDOMEN/GI: Abdomen soft, non-tender, bowel sounds present. Incision: Clean, dry and intact. Fundus: Firm, non-tender at umbilicus. GENITOURINARY: Light to moderate bleeding. EXTREMITIES: No cyanosis or edema, non-tender, without signs of DVT. Medications and IVs Current Medications Medications (Trade) Dose Ordered Sig/Ember Route Start Time Stop Time Status Last Admin (NS Flush) 2 ml BID IV FLUSH 04/08/17 21:00 (NS Flush) 2 ml UNSCH PRN IV FLUSH 04/08/17 12:30 (Mylicon Chew) 80 mg QID PRN PO 04/08/17 12:30 04/10/17 03:30 (Tylenol) 650 mg Q6H PRN PO 04/08/17 12:30 (Motrin) 600 mg Q6H PRN PO 04/08/17 12:30 04/10/17 09:39 (Percocet 5-325 Mg) 1 tab Q4H PRN PO 04/08/17 12:30 04/10/17 09:37 (Percocet 5-325 Mg) 2 tab Q4H PRN PO 04/08/17 12:30 04/10/17 03:30 (Britt-Colace) 2 tab Q12H PRN PO 04/08/17 12:30 04/10/17 09:38 (Ambien) 5 mg HS PRN PO 04/08/17 21:00 (Zofran Inj) 4 mg Q6H PRN IV PUSH 04/08/17 12:30 Assessment/Plan Assessment and Plan 26y/o female who is POD# 2 s/p CXN. -Continue routine care. -Percocet and Motrin PRN pain. -Encouraged OOB. Advised pelvic rest for 6 wks. Will need a f/u appt. in 1 wk for incision check. -Post op H/H 7.9/24.9 -Re: ctrl, she is considering nexplanon vs oral contraception - Likely d/c tomorrow dw OB attending and Dr. Ricketts Discharge Planning Likely in 1-2 days Richard Singleton MD, R3 Apr 10, 2017 13:38
[2017-04-10] MEDS: CEPHALEXIN MONOHYDRATE 500 MG CAP PO SCH ×2 (18:46→23:50)
[2017-04-10 20:00] VITALS: BP 119/78; PULSE 78; RESP 16; TEMP 97.8; O2SAT 100
[2017-04-11] MEDS: CEPHALEXIN MONOHYDRATE 500 MG CAP PO SCH ×2 (05:53→12:21)
[2017-04-11] MEDS: IBUPROFEN 600 MG TAB PO PRN ×2 (05:53→12:06)
[2017-04-11] MEDS: oxyCODONE/ACETAMINOPHEN 5 MG/325 MG TAB PO PRN ×2 (05:54→12:07)
[2017-04-11] MEDS: SODIUM CHLORIDE 0.9% FLUSH 10 ML FLUSH IV FLUSH SCH (07:55)
--- NOTE | 2017-04-11 08:10 | MP ---
cc: CAREY STRINGER MD DATE OF SURGERY 04/08/2017 PREOPERATIVE DIAGNOSES Previous , for repeat and tubal ligation. Carey Stringer MD BLD/SSB /1:53 PM /7:49 AM
--- NOTE | 2017-04-11 08:30 | MP ---
cc: CAREY KONG MD DATE OF OPERATION 04/08/2017 PREOPERATIVE DIAGNOSIS 39-week intrauterine . Previous , for repeat . POSTOPERATIVE DIAGNOSIS 39-week intrauterine . Previous , for repeat . PROCEDURE PERFORMED Repeat low transverse section. SURGEON MD Myke MARK[employer] PRESIDENT Valerio ANESTHESIA Spinal. PREOPERATIVE NOTE The patient is a 26-year-old black female, at 39 weeks who desires repeat . PROCEDURE The patient was taken to the operating room and placed in supine position on the operating room table. Adequate spinal anesthesia was adminisered. She was prepped and draped for abdominal surgery. The previous Pfannenstiel incision was excised out and cast off. The incision was carried through the fascia sharply and the fascia dissected laterally and then off the rectus muscle. The peritoneal cavity was entered sharply. The incision was extended superiorly and inferiorly and then stretched open. Bladder blade was placed in the lower edge of the incision. Transverse hysterotomy was made and extended bluntly bilaterally and the baby was delivered at 11:26 a.m., Apgars 8 and 9, a female infant, weight 3425 grams. Cord pH and cord blood obtained, some manually extracted. The uterus was exteriorized and hysterotomy closed in a running layer of chromic followed by an imbricating suture of the same. Hemostasis was achieved without difficulty. The uterus was elevated and blood suctioned from the cul-de-sac and gutters and replaced in the peritoneal cavity. The parietal peritoneum was closed in a running layer of 2-0 Vicryl. The muscle was reapproximated with stick ties and the fascia closed in a running layer of 0 Vicryl. The subcutaneous tissue was reapproximated using running 3-0 plain and the skin closed with a 3-0 Monocryl subcuticular stitch. Seven-day silver dressing placed on without difficulty. The estimated blood loss was 1000 cc. There were no complications. The only added information is that the kiwi vacuum was used on the baby's head to get the baby's head up through the incision due to difficulty in trying to manipulate that structure but otherwise there were no complications. Sponge and needle count were correct x 2 and the patient went to Recovery in stable condition. MD AURELIO King/SSB /1:56 PM /7:51 AM DILL[place]
[2017-04-11] MEDS: SIMETHICONE 80 MG CHEWABLE TAB PO PRN (12:21)
[2017-04-11] MEDS ORDERED: PERI PO (12:27)
[2017-04-11] MEDS ORDERED: CEPH500C PO (12:27)
[2017-04-11] MEDS ORDERED: IBUP-232 PO (12:27)
[2017-04-11] MEDS ORDERED: OXYC1TAB63 PO (12:27)
--- NOTE | 2017-04-11 12:28 | HHI.DCPOC ---
Discharge Care Plan Diagnosis: (1) delivery delivered (2) UTI (urinary tract infection) Report Symptoms to Your Doctor -Temperature above 100.5 degrees -Redness, of incision or excessive or foul smelling drainage -Unusual pain or calf pain -Increased vaginal bleeding -Painful or difficulty urinating -Feelings of extreme sadness or anxiety after 2 weeks Goals to Promote Your Health * To prevent worsening of your condition and complications * To maintain your health at the optimal level Directions to Meet Your Goals Take your medications as prescribed Follow your dietary instruction Follow activity as directed Ensure plenty of rest for recovery Drink fluids for hydration Keep your appointments as scheduled Take your immunizations and boosters as scheduled If your symptoms worsen call your PCP, if no PCP go to Urgent Care Center or Emergency Room Smoking is Dangerous to Your Health. Avoid second hand smoke Call the 24-hour crisis hotline for domestic abuse at Richard Singleton MD, R3 Apr 11, 2017 12:27
--- NOTE | 2017-04-11 14:51 | HHI.OB ---
Subjective Post Operative Day: 3 Remarks Patient doing better this morning. She is ambulating and voiding without difficulty. She is passing gas. Her pain is controlled with Motrin and Percocet. She is breast-feeding successfully. She denies fever, chills, nausea , vomiting. Her vaginal bleeding has lessened. She denies chest pain or shortness of breath. Objective Vitals/I&O Vital Signs Date Time Temp Pulse Resp B/P (MAP) Pulse Ox O2 Delivery O2 Flow Rate FiO2 04/10/17 20:00 97.8 78 16 119/78 (92) 100 Result Diagram: 04/09/17 0510 Objective Remarks GENERAL: Well-nourished, well-developed patient. CARDIOVASCULAR: Regular rate and rhythm without murmurs, gallops, or rubs. RESPIRATORY: Breath sounds equal bilaterally. No accessory muscle use. ABDOMEN/GI: Abdomen soft, non-tender, bowel sounds present. Incision: Clean, dry and intact. Fundus: Firm, non-tender at umbilicus. GENITOURINARY: Light to moderate bleeding. EXTREMITIES: No cyanosis or edema, non-tender, without signs of DVT. Medications and IVs Current Medications Medications (Trade) Dose Ordered Sig/Ember Route Start Time Stop Time Status Last Admin (NS Flush) 2 ml BID IV FLUSH 04/08/17 21:00 (NS Flush) 2 ml UNSCH PRN IV FLUSH 04/08/17 12:30 (Mylicon Chew) 80 mg QID PRN PO 04/08/17 12:30 04/11/17 12:21 (Tylenol) 650 mg Q6H PRN PO 04/08/17 12:30 (Motrin) 600 mg Q6H PRN PO 04/08/17 12:30 04/11/17 12:06 (Percocet 5-325 Mg) 1 tab Q4H PRN PO 04/08/17 12:30 04/11/17 12:07 (Percocet 5-325 Mg) 2 tab Q4H PRN PO 04/08/17 12:30 04/11/17 05:54 (Britt-Colace) 2 tab Q12H PRN PO 04/08/17 12:30 04/10/17 23:50 (Ambien) 5 mg HS PRN PO 04/08/17 21:00 (Zofran Inj) 4 mg Q6H PRN IV PUSH 04/08/17 12:30 (Keflex) 500 mg Q6HR PO 04/10/17 18:00 04/11/17 12:21 Assessment/Plan Assessment and Plan 26y/o female who is POD# 3 s/p CXN. -Continue routine care. -Percocet and Motrin PRN pain. -Encouraged OOB. Advised pelvic rest for 6 wks. Will need a f/u appt. in 1 wk for incision check. -Post op H/H 7.9/24.9 -Re: ctrl, she is considering nexplanon -Discharge Today dw OB attending and Dr. Ricketts Discharge Planning today Richard Singleton MD, R3 Apr 11, 2017 14:51
== END 2017-04-11 15:00 | disposition home or self-care (01) | DRG 766 ==
LOC: H2EB 08:50 → H1EA 13:38
PROVIDERS: ADMIT Obstetrics & Gynecology; ATTEND Obstetrics & Gynecology
PROC: 10D00Z1 Extraction of Products of Conception, Low, Open Approach (ICD-10-PCS; principal; 2017-04-08)
DX: O75.3 Other infection during labor (principal); Z37.0 Single live birth; Z3A.39 39 weeks gestation of pregnancy; O34.211 Maternal care for low transverse scar from previous cesarean delivery
CPT/HCPCS: 59025; 80307; 81001; 82805; 85025; 86850; 86900; 86901; 86920; 86922; 87077; 87086; 87186; J0690; J1100; J1200; J1885; J2274; J2370; J2405; J2590; J3010; J7120

== ENCOUNTER 2017-04-16 20:41 | Emergency (ER) | payer OTHER ==
[~2017-04-16] VITALS: Ht 172.7 cm; Wt 128.6 kg
[~2017-04-16 20:41] MED LIST changes: -LABE100T2 PO; -ZITH250T PO
[2017-04-16 20:46] VITALS: BP 147/71; PULSE 58; RESP 22; TEMP 98.2; O2SAT 100
--- NOTE | 2017-04-16 21:11 | PD ---
HPI Chief Complaint: Edema Time Seen by Provider: 20:55 Travel History International Travel<30 days: No Contact w/Intl Traveler<30days: No Traveled to known affect area: No History of Present Illness HPI The patient is a 26 year old female who presents to the [facility] emergency department with a history of having a delivery on April 08 due to repeat purposes. The patient reports that over the last 3 days she's has been experiencing a dry cough. She reports that today she developed right- sided chest pressure. She reports that the pressure in her chest is worse with taking a deep breath. She reports that on Saturday she began to have lower extremity edema in the left leg greater than the right. The patient reports that her was complicated by -induced hypertension. A workup was negative for preeclampsia. The patient reports that her blood pressure was monitored, however she was never started on medication for it. The patient was seen in the OB ED prior to arrival today for evaluation for possible preeclampsia. Blood work was done at that time as well as a urinalysis. The patient was cleared by them for eyes of preeclampsia. She was then sent to the emergency department for evaluation for possible DVT or PE. She reports that she is exclusively breast feeding. [facility] Past Medical History Narrative Medical The patient's past medical history is significant for -induced hypertension, history of a urinary tract infection diagnosed currently on Keflex. Medical History: Denies Significant Hx Diminished Hearing: No Tetanus Vaccination: < 5 Years Influenza Vaccination: No ?: Not Past Surgical History Narrative Surgical The patient's past surgical history is significant for an appendectomy, C- section 2. Surgical History: No Previous Surgery Appendectomy: Yes Section: Yes (X2) Social History Alcohol Use: No Tobacco Use: No Substance Use: No Allergies-Medications (Allergen,Severity, Reaction): Coded Allergies: No Known Allergies (Unverified , 04/05/17) Reported Meds & Prescriptions Reported Meds & Active Scripts Active Labetalol (Labetalol HCl) 100 Mg Tab 100 Mg PO BID 7 Days Zithromax (Azithromycin) 250 Mg Tab 250 Mg PO DAILY 4 Days Gnp Senna Plus 8.6-50 mg (Sennosides-Docusate Sodium) 8.6 Mg-50 Mg Tab 2 Tab PO Q12H PRN Oxycodone-Acetaminophen 5-325 (Oxycodone HCl/Acetaminophen) 5 Mg-325 Mg Tablet 1 Tab PO Q4H PRN Ibuprofen 600 Mg Tab 600 Mg PO Q6H PRN Cephalexin 500 Mg Cap 500 Mg PO Q6HR take 1 pill 4 times per day until finished Mag-Al Liq (Aluminum-Magnesium Hydroxide Liq) 200-200 Mg/5 Ml Liqd 20 Ml PO TID PRN Ondansetron Odt 4 Mg Tab 4 Mg SL Q8HR PRN Plus Iron 29-1 mg ( Vit-Iron Carbonyl) 29 Mg Iron-1 Mg Tab 1 Tab PO DAILY Review of Systems Except as stated in HPI: all other systems reviewed are Neg General / Constitutional: No: Fever Eyes: No: Visual changes HENT: Positive: Congestion, No: Headaches Cardiovascular: Positive: Chest Pain or Discomfort (right-sided chest pain), Dyspnea on exertion Respiratory: Positive: Cough, No: Shortness of Breath Gastrointestinal: Positive: Abdominal Pain, No: Nausea, Vomiting, Diarrhea Genitourinary: No: Dysuria Musculoskeletal: No: Pain Skin: No Rash Neurologic: No: Weakness Psychiatric: No: Depression Endocrine: No: Polydipsia Hematologic/Lymphatic: No: Easy Bruising Physical Exam Narrative General: The patient is a well-developed well-nourished female in no acute distress Head and Neck exam: Head is normocephalic atraumatic. Eyes: EOMI, pupils are equal round and reactive to light. Nose: Midline septum with pink mucous membranes Mouth: Dentition unremarkable. Moist mucus membranes. Posterior oropharynx is not erythematous. No tonsillar hypertrophy. Uvula midline. Airway patent. Neck: No palpable lymphadenopathy. No nuchal rigidity. No thyromegaly. Cardiovascular: Regular rate and rhythm without murmurs, gallops, or rubs. No pulse deficit to the extremities on auscultation and palpation of her radial artery. Lungs: Clear to auscultation bilaterally. No wheezes, rhonchi, or rales. Abdomen: Soft, with tenderness on palpation along the lower aspect of the abdomen near her scar. The patient has no surrounding erythema, induration is palpated, however no fluctuance or crepitus. No drainage from the wound. No guarding, rebound, or rigidity. Normal bowel sounds are audible. No tenderness on palpation over McBurney's point. Extremities: No clubbing or cyanosis. The patient has 1+ pitting edema bilateral lower extremities slightly worse on the left compared to the right. 2+ pulses in all 4 extremities. Back: No spinous process tenderness to palpation. No costovertebral angle tenderness to palpation. Neurologic Exam: Grossly nonfocal. Skin Exam: No rash noted. Intact skin that is warm and dry. Data Data Last Documented VS Vital Signs Date Time Temp Pulse Resp B/P (MAP) Pulse Ox O2 Delivery O2 Flow Rate FiO2 04/16/17 20:46 98.2 58 22 147/71 (96) 100 Orders Orders Us Leg Venous Doppler Bilat (04/16/17 20:58) Chest, Single Ap (04/16/17 20:59) Ed Urine Pregnancytest Poc (04/16/17 20:59) D-Dimer (04/16/17 21:07) Iv Access Insert/Monitor (04/16/17 21:09) Ecg Monitoring (04/16/17 21:09) Oximetry (04/16/17 21:09) Blood Culture (04/16/17 21:47) Ceftriaxone Inj (Rocephin Inj) (04/16/17 22:00) Azithromycin Inj (Zithromax Inj) (04/16/17 22:00) Morphine Inj (Morphine Inj) (04/16/17 22:15) Ondansetron Inj (Zofran Inj) (04/16/17 22:15) Ct Abd/Pel W Iv Contrast(Rout) (04/16/17 22:35) Ct Pulmonary Angiogram (04/16/17 22:35) Sodium Chlor 0.9% 1000 Ml Inj (Ns 1000 M (04/16/17 23:00) Iohexol 350 Inj (Omnipaque 350 Inj) (04/16/17 23:25) Labs Laboratory Tests Test 04/16/17 21:32 D-Dimer Quantitative (PE/DVT) GREATER THAN 35.20 MG/L FEU [facility] Medical Decision Making Medical Screen Exam Complete: Yes Emergency Medical Condition: Yes Medical Record Reviewed: Yes Interpretation(s) Last Impressions CT Angiography 04/16/175 Signed Impressions: Service Date/Time: Sunday, April 16, 2017 23:03 - CONCLUSION: 1. No PE is identified. 2. Small bilateral pleural effusions, right larger than left, with associated atelectasis in the lower lobes. Marko Bueno MD Abdomen/Pelvis CT 04/16/172234 Signed Impressions: Service Date/Time: Sunday, April 16, 2017 23:14 - CONCLUSION: 1. There is subcutaneous edema on the anterior abdominal wall consistent with recent section. A 2 cm air fluid level is present along the section scar to the right of midline. 2. Small volume of free fluid is present within the pelvis which could be consistent with the recent surgery. Uterus remains enlarged from the recent . 3. Small bilateral pleural effusions, right larger than left. Marko Bueno MD Chest X-Ray 04/16/172058 Signed Impressions: Service Date/Time: Sunday, April 16, 2017 21:13 - CONCLUSION: Patchy infiltrate in the right lower lung suggestive of pneumonia. Heath Martinez MD Lower Extremity Ultrasound 04/16/172057 Signed Impressions: Service Date/Time: Sunday, April 16, 2017 21:59 - CONCLUSION: No evidence of DVT. Heath Martinez MD Differential Diagnosis Pulmonary embolism, versus cardiomyopathy, versus DVT, versus pneumonia Narrative Course During the course of the patients emergency department visit, the patients history, examination, and differential diagnosis were reviewed with the patient. The patient was placed on a radiation monitor with oximetry and frequent blood pressure monitoring. The patient had IV access obtained and blood work sent for analysis. The patients laboratory studies were reviewed and remarkable for a d-dimer that is elevated at 35.2. The patient's laboratory studies done earlier in the OB ED were reviewed and showed a white count of 9.8, hemoglobin 8.5 which is improved compared to previously, platelets 300, with a differential that reveals 66.3 neutrophils, lymphocytes 22.4, CMP is remarkable for a chloride of 110, glucose 76, alkaline phosphatase 138, 8.3 calcium. The patient's albumin was noted to be low at 2.5. This could be a cause of the patient's peripheral edema. The patient is encouraged to elevate her legs frequently and increase the protein in her diet. A CTA to rule out PE was ordered. Radiology studies were reviewed and remarkable for an ultrasound that reveals no evidence of DVT. A chest x-ray reveals evidence of what appears to be a right lower lobe pneumonia. The patient had blood cultures 2 drawn. The patient was given Rocephin 1 g IV, Zithromax 500 IV. CTA to rule out PE revealed no PE, small bilateral pleural effusions right slightly larger than the left with associated atelectasis. CT scan of the abdomen and pelvis revealed subcutaneous edema on the anterior abdominal wall consistent with recent , 2 cm air fluid level is present along the scar to the right of the midline. Small volume of free fluid is present within the pelvis which could be consistent with recent surgery, uterus remains enlarged from recent , small bilateral pleural effusions right larger than the left. The patient's CT scan findings were discussed with the reading radiologist, at 12:55 AM. We discussed the findings that were noted on the CT and further detail. He explained that the findings could still be related to postoperative changes and not necessarily an infectious cause. As the patient's white blood cell count is normal and on examination the wound appears to be healing well without signs of erythema, the patient will be discharged home with close follow-up. The patient's case including history, pertinent physical examination findings, and laboratory studies were discussed with Dr. Luo, the [facility] resident for this patient's resident who has been following her during her , Dr. Singleton. We discussed the patient's CT scan results as well as ultrasound results and chest x-ray results. We discussed the patient's current vital signs and her slightly elevated blood pressure. She was agreeable with the plan for the patient to be discharged home on oral antibiotic and to be started on labetalol with close follow-up with the [facility] for an appointment later today versus tomorrow. The patient is resting comfortably and feels better, is alert and in no distress. The patients results and examination findings were discussed with the patient. The repeat examination is unremarkable and benign. The history, exam, diagnostic testing, and current condition do not suggest any significant pathology to warrant further testing, continued ED treatment, admission, or surgical evaluation at this point. The vital signs have been stable. The patient does not have uncontrollable pain, intractable vomiting, or other significant symptoms. The patient's condition is stable and appropriate for discharge. The patient will pursue further outpatient evaluation with a primary care physician or other designated or consulting physician as indicated in the discharge instructions. The patient expressed understanding and was agreeable with this plan. Physician Communication Physician Communication The patient's case including history, pertinent physical examination findings, and laboratory studies were discussed with Dr. Luo, the covering [facility] resident for this patient's resident who has been following her during her , Dr. Singleton. We discussed the patient's CT scan results as well as ultrasound results and chest x-ray results. We discussed the patient's current vital signs and her slightly elevated blood pressure. She was agreeable with the plan for the patient to be discharged home on oral antibiotic and to be started on labetalol with close follow-up with the [facility] for an appointment later today versus tomorrow. Diagnosis Primary Impression: Pneumonia Qualified Codes: J18.9 - Pneumonia, unspecified organism Additional Impressions: Peripheral edema Hypoalbuminemia Hypertension Qualified Codes: I10 - Essential (primary) hypertension Referrals: Primary Care Physician 1 day Patient Instructions: Community Acquired Pneumonia (ED), General Instructions, Leg Edema (ED) Med/Other Pt SpecificInfo: Prescription(s) given Scripts Labetalol (Labetalol) 100 Mg Tab 100 MG PO BID for Blood Pressure Management for 7 Days, #14 TAB 0 Refills Prov: Mita Martínez MD 04/17/17 Azithromycin (Zithromax) 250 Mg Tab 250 MG PO DAILY for Infection for 4 Days, #4 TAB 0 Refills Prov: Mita Martínez MD 04/17/17 Disposition: 01 DISCHARGE HOME Condition: Stable Mita Martínez MD Apr 16, 2017 21:11
--- NOTE | 2017-04-16 21:35 | RADRPT ---
EXAM DATE/TIME: 04/16/2017 21:13 [facility] COMPARISON: No previous studies available for comparison. INDICATIONS : Chest pain, shortness of breath. MEDICAL HISTORY : None. SURGICAL HISTORY : section. ENCOUNTER: Initial ACUITY: 1 week PAIN SCORE: 8/10 LOCATION: Right chest and midline. FINDINGS: A single view of the chest demonstrates patchy infiltrate in the right lower lung. The left lung is c lear. There are no effusions or pulmonary edema.. The cardiomediastinal contours are unremarkable. Osseous structures are intact. CONCLUSION: Patchy infiltrate in the right lower lung suggestive of pneumonia. Heath Martinez MD on April 16, 2017 at 21:33 Board Certified Radiologist. This report was verified electronically.
[2017-04-16] MEDS ORDERED: cefTRIAXone INJ 1,000 MG in SODIUM CHLORIDE 0.9% INJ 100 ML IV ONE (22:00)
[2017-04-16] MEDS ORDERED: AZITHROMYCIN INJ 500 MG in SODIUM CHLOR 0.9% 250 ML INJ 250 ML IV ONE (22:00)
[2017-04-16] MEDS ORDERED: ONDANSETRON HCL 4 MG/2 ML VIAL IV PUSH ONE (22:15)
[2017-04-16] MEDS ORDERED: MORPHINE SULFATE 4 MG/ML INJ IV PUSH ONE (22:15)
--- NOTE | 2017-04-16 22:55 | RADRPT ---
EXAM DATE/TIME: 04/16/2017 21:59 [facility] COMPARISON: No previous studies available for comparison. INDICATIONS : Bilateral leg swelling. MEDICAL HISTORY : . SURGICAL HISTORY : section.Appendectomy. ENCOUNTER: Initial ACUITY: 3 days PAIN SCORE: 0/10 LOCATION: Bilateral legs. TECHNIQUE: Venous ultrasound of the left and right leg was performed from the inguinal ligament to the proximal calf. Real-time, color Doppler and spectral tracing, compression and augmentation techniques were us ed. FINDINGS: RIGHT LEG: There is normal compressibility of the deep venous system from the inguinal region to the proximal ca lf. No echogenic clot is seen in the lumen of the common femoral, femoral, popliteal, and posterior tibial veins. There is a normal response of the venous system to proximal and distal augmentation an d respiration. LEFT LEG: There is normal compressibility of the deep venous system from the inguinal region to the proximal ca lf. No echogenic clot is seen in the lumen of the common femoral, femoral, popliteal, and posterior tibial veins. There is a normal response of the venous system to proximal and distal augmentation an d respiration. CONCLUSION: No evidence of DVT. Heath Martinez MD on April 16, 2017 at 22:52 Board Certified Radiologist. This report was verified electronically.
[2017-04-16] MEDS ORDERED: SODIUM CHLOR 0.9% 1000 ML INJ 1,000 ML IV ONE (23:00)
[2017-04-16] MEDS ORDERED: IOHEXOL 350 MG/ML 10 ML VIAL (for RAD DIAG) IVCONTRAST ONE (23:25)
--- NOTE | 2017-04-16 23:40 | RADRPT ---
EXAM DATE/TIME: 04/16/2017 23:03 [facility] COMPARISON: No previous studies available for comparison. INDICATIONS : Right side chest pain, lower extremity swelling. IV CONTRAST: 75 cc Omnipaque 350 (iohexol) IV ; Cumulative dose for multiple exams. RADIATION DOSE: 9.20 CTDIvol (mGy) MEDICAL HISTORY : None SURGICAL HISTORY : Appendectomy. section. ENCOUNTER: Initial ACUITY: 1 day PAIN SCALE: 10/10 LOCATION: Right chest TECHNIQUE: Volumetric scanning of the chest was performed using a pulmonary embolism protocol MIP images were re constructed. Using automated exposure control and adjustment of the mA and/or kV according to patien t size, radiation dose was kept as low as reasonably achievable to obtain optimal diagnostic quality images. DICOM format image data is available electronically for review and comparison. Follow-up recommendations for detected pulmonary nodules are based at a minimum on nodule size and pa tient risk factors according to Fleischner Society Guidelines. FINDINGS: PULMONARY ARTERIES: No filling defects are seen in the pulmonary arteries through the segmental level. LUNGS: There is dependent atelectasis bilaterally and compressive atelectasis adjacent to the pleural fluid. No pneumothorax is present. No concerning pulmonary nodule is visualized. PLEURAE: There are small bilateral pleural effusions, right larger than left. No pleural thickening is visuali zed. MEDIASTINUM: The heart and great vessels demonstrate no acute abnormality. No lymphadenopathy is seen. There is pr esumed residual thymic tissue in anterior mediastinum. MUSCULOSKELETAL: No acute abnormality. MISCELLANEOUS: The visualized upper abdominal organs demonstrate no acute abnormality. CONCLUSION: 1. No PE is identified. 2. Small bilateral pleural effusions, right larger than left, with associated atelectasis in the lowe r lobes. Marko Bueno MD on April 16, 2017 at 23:36 Board Certified Radiologist. This report was verified electronically.
--- NOTE | 2017-04-16 23:52 | RADRPT ---
EXAM DATE/TIME: 04/16/2017 23:14 [facility] COMPARISON: No previous studies available for comparison. INDICATIONS : Lower abdominal pain post 8 days ago. IV CONTRAST: 75 cc Omnipaque 350 (iohexol) IV ; Cumulative dose for multiple exams. ORAL CONTRAST: No oral contrast ingested. RADIATION DOSE: 18.00 CTDIvol (mGy) MEDICAL HISTORY : None SURGICAL HISTORY : Appendectomy. section. ENCOUNTER: Initial ACUITY: 1 week PAIN SCALE: 6/10 LOCATION: Bilateral lower quadrant TECHNIQUE: Volumetric scanning of the abdomen and pelvis was performed. Using automated exposure control and ad justment of the mA and/or kV according to patient size, radiation dose was kept as low as reasonably achievable to obtain optimal diagnostic quality images. DICOM format image data is available electro nically for review and comparison. FINDINGS: LOWER LUNGS: There are small bilateral pleural effusions, right larger than left.2 LIVER: Homogeneous density without lesion. There is no dilation of the biliary tree. No calcified gallston es. SPLEEN: Normal size without lesion. PANCREAS: Within normal limits. KIDNEYS: Normal in size and shape. There is no mass, stone or hydronephrosis. ADRENAL GLANDS: Within normal limits. VASCULAR: There is no aortic aneurysm. BOWEL/MESENTERY: The stomach, small bowel, and colon demonstrate no acute abnormality. There is no free intraperitone al air. There is a small hiatal hernia. Trace free fluid is present in the pelvis. ABDOMINAL WALL: There is subcutaneous edema on the anterior abdominal wall. Along the section scar to the ri ght of midline is a 2 cm air fluid level. RETROPERITONEUM: There is no lymphadenopathy. BLADDER: No wall thickening or mass. REPRODUCTIVE: Uterus is enlarged. INGUINAL: There is no lymphadenopathy or hernia. MUSCULOSKELETAL: No acute abnormality. CONCLUSION: 1. There is subcutaneous edema on the anterior abdominal wall consistent with recent section . A 2 cm air fluid level is present along the section scar to the right of midline. 2. Small volume of free fluid is present within the pelvis which could be consistent with the recent surgery. Uterus remains enlarged from the recent . 3. Small bilateral pleural effusions, right larger than left. Marko Bueno MD on April 16, 2017 at 23:44 Board Certified Radiologist. This report was verified electronically.
[2017-04-17] MEDS ORDERED: LABE100T2 PO (00:41)
[2017-04-17] MEDS ORDERED: ZITH250T PO (00:41)
[2017-04-17 01:23] VITALS: BP 132/69; PULSE 65; RESP 18; O2SAT 97
== END 2017-04-17 01:51 | disposition home or self-care (01) ==
LOC: NEPE 20:41
DX: J18.9 Pneumonia, unspecified organism (principal); R60.0 Localized edema; E88.09 Other disorders of plasma-protein metabolism, not elsewhere classified; I10 Essential (primary) hypertension; Z79.899 Other long term (current) drug therapy
CPT/HCPCS: 71045; 71275; 74177; 85379; 87040; 93970; 96361; 96365; 96367; 96375; 99285; J0456; J0696; J2270; J2405; J7030; J7050; Q9967

== ENCOUNTER → 2017-04-16 | Emergency (ER) | payer MEDICAID, OTHER ==
[~2017-04-16] MED LIST changes: +CEPH500C PO; +IBUP-232 PO; +LABE100T2 PO; +OXYC1TAB63 PO; +PERI PO; +ZITH250T PO
[2017-04-16 16:38] VITALS: BP 134/68; PULSE 59
[2017-04-16 17:24] VITALS: BP 133/80; PULSE 62
[2017-04-16 17:25] VITALS: PULSE 58; O2SAT 99
--- NOTE | 2017-04-16 17:45 | PD ---
HPI Chief Complaint Headache and lower extremity swelling Date Seen: Apr 16, 2017 (Flavia Luo MD, R3) Travel History International Travel<30 Days: No Contact w/Intl Traveler<30Days: No (Flavia Luo MD, R3) History of Present Illness HPI Patient is a 26 year old POD#8 s/p on 04/08 who presents today for headache and lower extremity swelling. The headache started this morning. She denies any visual changes, photophobia, dysuria, hematuria, fever, chills, nausea or vomiting. She also complains of chest heaviness and shortness of breath that started 2 days ago. These symptoms do not worsen with exertion. She notes that she continues to have abdominal pain in her lower abdomen since the surgery. She has been taking Percocet and Ibuprofen with some relief in symptoms. She continues to have light vaginal bleeding but denies any other vaginal discharge or any malodorous discharge. Of note, she was admitted during for PIH and workup at that time was negative. (Flavia Luo MD, R3) History Past Medical History Medical History: Denies Significant Hx (Flavia Luo MD, R3) Obstetric History Obstetric History x 2 (Flavia Luo MD, R3) Past Surgical History Narrative Surgical x 2 (Flavia Luo MD, R3) Family History Family History: Negative (Flavia Luo MD, R3) Social History Alcohol Use: No Tobacco Use: No Substance Abuse: No (Flavia Luo MD, R3) Allergies-Medications (Allergen,Severity, Reaction): Coded Allergies: No Known Allergies (Unverified , 04/05/17) Home Meds Active Scripts Labetalol (Labetalol) 100 Mg Tab, 100 MG PO BID for Blood Pressure Management for 7 Days, #14 TAB 0 Refills Prov:Mita Martínez MD 04/17/17 Azithromycin (Zithromax) 250 Mg Tab, 250 MG PO DAILY for Infection for 4 Days, # 4 TAB 0 Refills Prov:Mita Martínez MD 04/17/17 Sennosides-Docusate Sodium (Gnp Senna Plus 8.6-50 mg) 8.6 Mg-50 Mg Tab, 2 TAB PO Q12H Y for CONSTIPATION, #30 TAB 0 Refills Prov:Richard Singleton MD, R3 04/11/17 Oxycodone HCl/Acetaminophen (Oxycodone-Acetaminophen 5-325) 5 Mg-325 Mg Tablet, 1 TAB PO Q4H Y for pain 6-10, #30 0 Refills Prov:Richard Singleton MD, R3 04/11/17 Ibuprofen (Ibuprofen) 600 Mg Tab, 600 MG PO Q6H Y for CRAMPING, #30 TAB 0 Refills Prov:Richard Singleton MD, R3 04/11/17 Cephalexin (Cephalexin) 500 Mg Cap, 500 MG PO Q6HR, #28 CAP take 1 pill 4 times per day until finished Prov:Richard Singleton MD, R3 04/11/17 Aluminum-Magnesium Hydroxide Liq (Mag-Al Liq) 200-200 Mg/5 Ml Liqd, 20 ML PO TID Y for HEARTBURN, #1 BOTTLE Prov:Jayson Ricketts MD 03/30/17 Ondansetron Odt (Ondansetron Odt) 4 Mg Tab, 4 MG SL Q8HR Y for Nausea/Vomiting, #30 TAB 0 Refills Prov:Jayson Ricketts MD 03/30/17 Vit-Iron Carbonyl ( Plus Iron 29-1 mg) 29 Mg Iron-1 Mg Tab, 1 TAB PO DAILY for Nutritional Supplement, #30 TAB 0 Refills Prov:Richard Singleton MD, R3 03/12/17 Review of Systems Except as stated in HPI: all other systems reviewed are Neg General / Constitutional: No: Fever, Chills Eyes: No: Diploplia, Blurred Vision, Visual changes HENT: Headaches Cardiovascular: Chest Pain or Discomfort, Edema, No: Palpitations Respiratory: Short of Breath, No: Cough, Wheezing Gastrointestinal: Abdominal Pain, No: Nausea, Vomiting, Diarrhea, Constipation Genitourinary: Pelvic Pain, Vaginal Bleeding, No: Dysuria, Discharge Musculoskeletal: Edema Skin: No Rash Neurologic: Headache Psychiatric: No: Substance Abuse (Flavia Luo MD, R3) Physical Exam Narrative GENERAL: Well-nourished, well-developed patient in NAD. SKIN: Warm and dry. HEAD: Normocephalic and atraumatic. EYES: No scleral icterus. No injection or drainage. ENT: No nasal drainage noted. Mucous membranes pink. Airway patent. NECK: Supple, trachea midline. No JVD. CARDIOVASCULAR: Regular rate and rhythm without murmurs, gallops, or rubs. RESPIRATORY: Tachypnea with RR 22. Breath sounds equal bilaterally. No accessory muscle use. ABDOMEN/GI: Abdomen soft, tender to palpation in lower abdomen, bowel sounds present, some guarding GENITOURINARY: Fundus firm and non-tender below umbilicus. EXTREMITIES: Trace edema in lower extremities bilaterally. Negative Ophelia's sign bilaterally. Tenderness to palpation along dorsal aspect of calf just inferior to popliteal fossa. BACK: Nontender without obvious deformity. NEUROLOGICAL: Awake and alert. Motor and sensory grossly within normal limits. Five out of 5 muscle strength in all muscle groups. Normal speech. (Flavia Luo MD, R3) Data Data Vital Signs Reviewed: Yes Orders Orders Vital Signs (Adult) .ON ADMISSION (04/16/17 17:34) Urinalysis - C+S If Indicated (04/16/17 17:34) Comprehensive Metabolic Panel (04/16/17 17:34) Complete Blood Count With Diff (04/16/17 17:34) Prothrombin Time / Inr (Pt) (04/16/17 17:34) Act Partial Throm Time (Ptt) (04/16/17 17:34) Micro Albumin Creat Random Ur (04/16/17 17:43) (Flavia Luo MD, R3) [facility] Medical Record Reviewed: Yes Plan 26 year old POD#8 s/p repeat . 1. Headache- blood pressure stable, rule out preeclampsia with CBC, CMP, UA, urine microalbumin/creatinine ratio. 2. Patient will need further evaluation in medical ED for other presenting symptoms. jazmin Lantigua Addendum: Blood pressure stable, no clinical indication of preeclampsia. Will send to main ED for further evaluation. (Flavia Luo MD, R3) Attending Attestation I saw and evaluated patient with the resident and performed all hamilton decision making. No evidence of preeclampsia, transfer to ED for further evaluation. [facility] (Millie Lantigua MD) Diagnosis Diagnosis: Primary Impression: Headache Qualified Codes: R51 - Headache Disposition: DISCHARGE HOME (TO [facility]) Condition: Stable Flavia Luo MD, R3 Apr 16, 2017 17:45 Millie Lantigua MD Apr 29, 2017 14:08
[2017-04-16 19:04] LABS: BACTERIA, URINE FEW /hpf; BILIRUBIN, URINE NEG (NEG); BLOOD, URINE LARGE (NEG); GLUCOSE,URINE NEG (NEG); KETONE, URINE NEG (NEG); MUCUS URINE FEW /lpf (OCC); NITRITE,URINE NEG (NEG); SQUAMOUS EPITHELIAL CELL URINE 6 /hpf (0-5); TRANSITIONAL EPI CELLS, URINE 1 /hpf; URINE COLOR LIGHT-RED (YELLW/STRAW); URINE LEUKOCYTE ESTERASE LARGE (NEG)
[2017-04-16 20:19] LABS: AUTOMATED NEUTROPHIL # 6.5 TH/MM3 (1.8-7.7); BASOPHIL # 0.1 TH/MM3 (0-0.2); BASOPHIL % 0.8 % (0.0-2.0); EOSINOPHIL # 0.3 TH/MM3 (0-0.4); EOSINOPHIL % 2.6 % (0.0-4.0); HEMATOCRIT 27.5 % (35.0-46.0); HEMOGLOBIN 8.5 GM/DL (11.6-15.3); LYMPH % 22.4 % (9.0-44.0); LYMPHOCYTE # 2.2 TH/MM3 (1.0-4.8); MEAN CELL VOLUME 65.8 FL (80.0-100.0); MEAN CORPUSCULAR HEMOGLOBIN 20.3 PG (27.0-34.0); MEAN CORPUSCULAR HGB CONC 30.8 % (32.0-36.0); MEAN PLATELET VOLUME 9.7 FL (7.0-11.0); MONO % 7.9 % (0.0-8.0); MONOCYTE # 0.8 TH/MM3 (0-0.9); NEUT % 66.3 % (16.0-70.0); PLATELET COUNT 300 TH/MM3 (150-450); RED BLOOD COUNT 4.18 MIL/MM3 (4.00-5.30); RED CELL DISTRIBUTION WIDTH 16.9 % (11.6-17.2); WHITE BLOOD COUNT 9.8 TH/MM3 (4.0-11.0)
[2017-04-16 20:40] LABS: ALT (GPT) 29 U/L (10-53)
[2017-04-16 20:42] LABS: ALBUMIN 2.5 GM/DL (3.4-5.0); ALKALINE PHOSPHATASE 138 U/L (45-117); AST (GOT) 26 U/L (15-37); BICARBONATE 24.7 MEQ/L (21.0-32.0); BLOOD UREA NITROGEN 11 MG/DL (7-18); CALCIUM 8.3 MG/DL (8.5-10.1); CHLORIDE 110 MEQ/L (98-107); CREATININE 0.94 MG/DL (0.50-1.00); GLOMERULAR FILTRATION RATE 86 ML/MIN (>89); GLUCOSE,RANDOM 76 MG/DL (74-106); SODIUM (NA) 142 MEQ/L (136-145); TOTAL BILIRUBIN ADULT 0.2 MG/DL (0.2-1.0); TOTAL PROTEIN 6.7 GM/DL (6.4-8.2)
== END | disposition home or self-care (01) ==
LOC: HOBED 16:10
DX: R51 Headache (principal); M79.89 Other specified soft tissue disorders; R06.02 Shortness of breath; R10.9 Unspecified abdominal pain; Z79.899 Other long term (current) drug therapy
CPT/HCPCS: 36415; 80053; 81001; 82043; 82570; 84156; 85025; 87086; 99283